=== PATIENT | female | born 1990 | race Caucasian/White ===

== ENCOUNTER 2018-10-04 00:30 | Emergency (ER) | payer MEDICAID, OTHER ==
[2018-10-04] MEDS ORDERED: EPINEPHrine 1 MG/ML SDV ONE (00:37)
[2018-10-04] MEDS ORDERED: diphenhydrAMINE 50 MG/ML SDV ONE (00:37)
[2018-10-04] MEDS ORDERED: methylPREDNISolone Sodium Succinate 125 MG/2 ML SDV ONE (00:37)
--- NOTE | 2018-10-04 00:38 | EDM.PDOC ---
ED HPI GENERAL MEDICAL PROBLEM - General Chief Complaint: Allergic Reaction Stated Complaint: POSSIBLE ALLERGIC REACTION Time Seen by Provider: 10/04/18 00:36 - History of Present Illness INITIAL COMMENTS - FREE TEXT/NARRATIVE: HISTORY AND PHYSICAL: History of present illness: Patient is a 28-year-old white female presents with acute allergic reaction the diffuse erythematous rash and difficulty swallowing this occurred after she ate a chocolate covered banana at 1 hour prior to arrival Review of systems: As per history of present illness and below otherwise all systems reviewed and negative. Past medical history: As per history of present illness and as reviewed below otherwise noncontributory. Surgical history: As per history of present illness and as reviewed below otherwise noncontributory. Social history: No reported history of drug or alcohol abuse. Family history: As per history of present illness and as reviewed below otherwise noncontributory. Physical exam: HEENT: Atraumatic, normocephalic, pupils reactive, negative for conjunctival pallor or scleral icterus, mucous membranes moist, throat clear, neck supple, nontender, trachea midline. Lungs: Clear to auscultation, breath sounds equal bilaterally, chest nontender. Heart: S1S2, regular, negative for clicks, rubs, or JVD. Abdomen: Soft, nondistended, nontender. Negative for masses or hepatosplenomegaly. Negative for costovertebral tenderness. Pelvis: Stable nontender. Genitourinary: Deferred. Rectal: Deferred. Extremities: Atraumatic, negative for cords or calf pain. Neurovascular unremarkable. Neuro: Awake, alert, oriented. Cranial nerves II through XII unremarkable. Cerebellum unremarkable. Motor and sensory unremarkable throughout. Exam nonfocal. Skin: Patient has a diffuse coalesced erythematous rash Diagnostics: None Therapeutics: Epinephrine 0.3 IM Benadryl 50 IV Solu-Medrol and 125 IV Impression: #1 acute allergic reaction Definitive disposition and diagnosis as appropriate pending reevaluation and review of above. - Related Data Allergies Allergy/AdvReac Type Severity Reaction Status Date / Time Penicillins Allergy Rash Verified 10/04/18 00:36 Home Meds: Home Meds ClonazePAM [KlonoPIN] 1 mg PO BID 10/04/18 [History] buPROPion HCl [Wellbutrin Xl] 300 mg PO DAILY 10/04/18 [History] ED ROS ALLERGIC REACTION - Review of Systems Review Of Systems: ROS reveals no pertinent complaints other than HPI. ED EXAM GENERAL NO PERIP PULSE - Physical Exam Exam: See Below (See dictation) Course - Vital Signs Text/Narrative:: Patient with marked resolution has no difficulty swallowing breathing speech or other concern is eager for discharge request discharge. Last Recorded V/S: Last Vital Signs Temp 37.6 C 10/04/18 00:37 Pulse 104 H 10/04/18 00:37 Resp 18 10/04/18 00:37 BP 128/82 10/04/18 00:37 Pulse Ox 96 10/04/18 00:37 - Orders/Labs/Meds Meds: Medications Discontinued Medications Generic Name Dose Route Start Last Admin Trade Name Freq PRN Reason Stop Dose Admin Diphenhydramine HCl Confirm 10/04/18 00:37 10/04/18 00:51 Benadryl Administered 10/04/18 00:38 Not Given Dose 50 mg .ROUTE .STK-MED ONE Diphenhydramine HCl 50 mg 10/04/18 00:45 10/04/18 00:48 Benadryl IVPUSH 10/04/18 00:46 50 mg ONETIME ONE Administration Epinephrine HCl Confirm 10/04/18 00:37 10/04/18 00:51 Adrenalin Administered 10/04/18 00:38 Not Given Dose 1 mg .ROUTE .STK-MED ONE Epinephrine HCl 0.3 mg 10/04/18 00:45 10/04/18 00:47 Adrenalin IM 10/04/18 00:46 0.3 mg ONETIME ONE Administration Methylprednisolone Sodium Succinate Confirm 10/04/18 00:37 10/04/18 00:51 Solu-Medrol Administered 10/04/18 00:38 Not Given Dose 125 mg .ROUTE .STK-MED ONE Methylprednisolone Sodium Succinate 125 mg 10/04/18 00:45 10/04/18 00:48 Solu-Medrol IVPUSH 10/04/18 00:46 125 mg ONETIME ONE Administration Departure - Departure Time of Disposition: 01:07 Disposition: Home, Self-Care 01 Condition: Good Clinical Impression: Allergic reaction - Discharge Information Additional Instructions: The following information is given to patients seen in the emergency department who are being discharged to home. This information is to outline your options for follow-up care. We provide all patients seen in our emergency department with a follow-up referral. The need for follow-up, as well as the timing and circumstances, are variable depending upon the specifics of your emergency department visit. If you don't have a primary care physician on staff, we will provide you with a referral. We always advise you to contact your personal physician following an emergency department visit to inform them of the circumstance of the visit and for follow-up with them and/or the need for any referrals to a consulting specialist. The emergency department will also refer you to a specialist when appropriate. This referral assures that you have the opportunity for followup care with a specialist. All of these measure are taken in an effort to provide you with optimal care, which includes your followup. Under all circumstances we always encourage you to contact your private physician who remains a resource for coordinating your care. When calling for followup care, please make the office aware that this follow-up is from your recent emergency room visit. If for any reason you are refused follow-up, please contact the [facility] emergency department at and asked to speak to the emergency department charge nurse. Audrey Ortega as directed follow-up private medical doctor for a possible allergens as discussed and return as needed as discussed
[2018-10-04] MEDS ORDERED: EPINEPHrine 1 MG/ML SDV IM ONE (00:45)
[2018-10-04] MEDS ORDERED: methylPREDNISolone Sodium Succinate 125 MG/2 ML SDV IVPUSH ONE (00:45)
[2018-10-04] MEDS ORDERED: diphenhydrAMINE 50 MG/ML SDV IVPUSH ONE (00:45)
== END 2018-10-04 02:13 | disposition home or self-care (01) ==
LOC: MW.ED 00:30
DX: T78.1XXA Other adverse food reactions, not elsewhere classified, initial encounter (principal); Z88.0 Allergy status to penicillin
CPT/HCPCS: 96372; 96374; 96375; 99283; J0171; J1200; J2930; 99282

== ENCOUNTER 2019-06-30 05:40 | Emergency (ER) | payer MEDICAID ==
--- NOTE | 2019-06-30 05:47 | EDM.PDOC ---
ED HPI GENERAL MEDICAL PROBLEM - General Stated Complaint: COUGHING Time Seen by Provider: 06/30/19 06:10 - History of Present Illness INITIAL COMMENTS - FREE TEXT/NARRATIVE: HISTORY AND PHYSICAL: History of present illness: The patient is a 29-year-old female who presents to the ED with cough for the last 2 days who did not get her influenza shot. The patient has no pulmonary history and does not smoke and has a history of lumbar back pain and she says the coughing is aggravating her pain. The patient did have an MRI recently which I reviewed which did not reveal any significant disease. Patient denies as she has had a tubal ligation. She's had no nausea vomiting or diarrhea and she does state that she has a sore throat but only nasal congestion. She has tried some [id number] meds and is here for evaluation. She did not have a documented fever at home and has had some feverish feeling in the last 24 hours but she did not take her temperature. Review of systems: As per history of present illness and below otherwise all systems reviewed and negative. Past medical history: As per history of present illness and as reviewed below otherwise noncontributory. Surgical history: As per history of present illness and as reviewed below otherwise noncontributory. Social history: No reported history of drug or alcohol abuse. Family history: As per history of present illness and as reviewed below otherwise noncontributory. Physical exam: General: Well-developed well-nourished female who is nontoxic and a dry cough is appreciated on my evaluation. Vital signs are noted by me HEENT: Atraumatic, normocephalic, pupils reactive, negative for conjunctival pallor or scleral icterus, mucous membranes moist, throat clear exudates and there is only minimal oropharyngeal erythema and no cervical adenopathy, neck supple, nontender, trachea midline. Lungs: Clear to auscultation, breath sounds equal bilaterally, chest nontender. There is no wheezing stridor or work of breathing Heart: S1S2, regular rhythm and rate and no overt murmurs Abdomen: Soft, nondistended, nontender. Negative for masses or hepatosplenomegaly. Negative for costovertebral tenderness. Pelvis: Deferred Genitourinary: Deferred. Rectal: Deferred. Extremities: Atraumatic, negative for cords or calf pain. Neurovascular unremarkable. Neuro: Awake, alert, oriented. Cranial nerves II through XII unremarkable. Cerebellum unremarkable. Motor and sensory unremarkable throughout. Exam nonfocal. Diagnostics: Influenza rapid strep Therapeutics: DuoNeb, spacer and spacer teaching Impression: Influenza B with bronchospastic cough, pharyngitis Definitive disposition and diagnosis as appropriate pending reevaluation and review of above. chest and back Pain Score (Numeric/FACES): 6 - Related Data Allergies Allergy/AdvReac Type Severity Reaction Status Date / Time Penicillins Allergy Rash Verified 10/04/18 00:36 Home Meds: Home Meds ClonazePAM [KlonoPIN] 1 mg PO BID 10/04/18 [History] buPROPion HCl [Wellbutrin Xl] 300 mg PO DAILY 10/04/18 [History] Past Medical History HEENT History: Reports: None Cardiovascular History: Reports: None Respiratory History: Reports: None Gastrointestinal History: Reports: None Genitourinary History: Reports: None MEDICAL RECORDS CLERK History: Reports: None Musculoskeletal History: Reports: None Neurological History: Reports: None Endocrine/Metabolic History: Reports: None Hematologic History: Reports: None Immunologic History: Reports: None Oncologic (Cancer) History: Reports: None Dermatologic History: Reports: None - Infectious Disease History Infectious Disease History: Reports: None - Past Surgical History Head Surgeries/Procedures: Reports: None Social & Family History - Family History Family Medical History: Noncontributory - Caffeine Use Caffeine Use: Reports: Coffee ED ROS GENERAL - Review of Systems Review Of Systems: Comprehensive ROS is negative, except as noted in HPI. ED EXAM, GENERAL - Physical Exam Exam: See Below (see dictation) Course - Vital Signs Last Recorded V/S: Last Vital Signs Temp 37.3 C 06/30/19 05:47 Pulse 93 06/30/19 05:47 Resp 18 06/30/19 05:47 BP 129/68 06/30/19 05:47 Pulse Ox 96 06/30/19 05:47 - Orders/Labs/Meds Orders: Active Orders 24 hr Category Date Time Status Communication Order [RC] STAT Care 06/30/19 06:19 Active RT Aerosol Therapy [RC] ASDIRECTED Care 06/30/19 06:19 Active STREP SCRN A RAPID W CULT CONF [RM] Stat Lab 06/30/19 06:30 Received Meds: Medications Discontinued Medications Generic Name Dose Route Start Last Admin Trade Name Freq PRN Reason Stop Dose Admin Albuterol/Ipratropium 3 ml 06/30/19 06:19 06/30/19 06:29 Duoneb 3.0-0.5 Mg/3 Ml NEB 06/30/19 06:20 3 ml ONETIME ONE Administration Departure - Departure Time of Disposition: 06:35 Disposition: Home, Self-Care 01 Condition: Good Clinical Impression: Influenza B, Bronchospasm Pharyngitis Qualifiers: Pharyngitis/tonsillitis etiology: unspecified etiology Qualified Code(s): J02.9 - Acute pharyngitis, unspecified - Discharge Information Referrals: Clari Kidd PAY CLERK [Primary Care Provider] - Additional Instructions: The following information is given to patients seen in the emergency department who are being discharged to home. This information is to outline your options for follow-up care. We provide all patients seen in our emergency department with a follow-up referral. The need for follow-up, as well as the timing and circumstances, are variable depending upon the specifics of your emergency department visit. If you don't have a primary care physician on staff, we will provide you with a referral. We always advise you to contact your personal physician following an emergency department visit to inform them of the circumstance of the visit and for follow-up with them and/or the need for any referrals to a consulting specialist. The emergency department will also refer you to a specialist when appropriate. This referral assures that you have the opportunity for followup care with a specialist. All of these measure are taken in an effort to provide you with optimal care, which includes your followup. Under all circumstances we always encourage you to contact your private physician who remains a resource for coordinating your care. When calling for followup care, please make the office aware that this follow-up is from your recent emergency room visit. If for any reason you are refused follow-up, please contact the [facility] emergency department at and ask to speak to the emergency department charge nurse. [address] [place] [id number] Push hydration and use all medication as prescribed, the Ventolin inhaler with the spacer you Been given, the Tamiflu and the Phenergan with codeine cough medicine, taking the cough medicine only when you're home. Please connect with your provider at [facility] for reevaluation and further care and return to ER as needed and as discussed Sepsis Event Note - Focused Exam Vital Signs: Vital Signs Temp Pulse Resp BP Pulse Ox 06/30/19 05:47 37.3 C 93 18 129/68 96 Date Exam was Performed: 06/30/19 Time Exam was Performed: 06:34 - My Orders Last 24 Hours: My Active Orders 06/30/19 06:19 Communication Order [RC] STAT RT Aerosol Therapy [RC] ASDIRECTED 06/30/19 06:30 STREP SCRN A RAPID W CULT CONF [RM] Stat - Assessment/Plan Last 24 Hours: My Active Orders 06/30/19 06:19 Communication Order [RC] STAT RT Aerosol Therapy [RC] ASDIRECTED 06/30/19 06:30 STREP SCRN A RAPID W CULT CONF [RM] Stat
[2019-06-30] MEDS ORDERED: Albuterol/Ipratropium 3.0-0.5 MG/3 ML Neb Soln NEB ONE (06:19)
== END 2019-06-30 06:56 | disposition home or self-care (01) ==
LOC: MW.ED 05:40
DX: J11.1 Influenza due to unidentified influenza virus with other respiratory manifestations (principal); J98.01 Acute bronchospasm; Z88.0 Allergy status to penicillin; Z79.899 Other long term (current) drug therapy
CPT/HCPCS: 87081; 87804; 87880-QW; 99283-25; J7620-GY

== ENCOUNTER 2020-07-05 06:15 | Emergency (ER) | payer MEDICAID ==
[2020-07-05] MEDS ORDERED: fentaNYL 50 MCG/ML SDV IVPUSH ONE (06:47)
[2020-07-05] MEDS ORDERED: Acetaminophen 500 MG Tab PO ONE (06:47)
--- NOTE | 2020-07-05 06:50 | EDM.PDOC ---
<Ralf Payan - Last Filed: 07/05/20 06:48> ED HPI GENERAL MEDICAL PROBLEM - General Chief Complaint: Abdominal Pain Stated Complaint: STOMACH PAIN Time Seen by Provider: 07/05/20 06:29 Source of Information: Reports: Patient, Old Records History Limitations: Reports: No Limitations - History of Present Illness INITIAL COMMENTS - FREE TEXT/NARRATIVE: Is a very pleasant 30-year-old female with a past medical history of anxiety presenting with abdominal pain. She reports the onset of right upper quadrant abdominal pain around 9 PM this evening after she smoked marijuana and ate a very heavy meal consisting of sloppy [employer] doughnuts and chips with cheese. After this meal she started having right upper quadrant abdominal pain that she describes as "cramping like a period". Does not radiate, rated as 8 out of 10 and constant. Denies any history of prior pain like this in the past. Nothing makes it better or worse. She denies fever, nausea, vomiting, hematemesis, diarrhea, bloody stools, dysuria, urinary frequency, or hematuria. No self treatment prior to arrival, no other complaints. ROS: A 10-point review of systems was negative, except as noted in the HPI (or in the ROS section of this note). Past medical history: Reviewed, no additional pertinent history. Surgical history: Reviewed in system, no additional pertinent history. Social history: Reviewed in system, no additional pertinent history. Family history: Reviewed in system, no additional pertinent history. PHYSICAL EXAM Vital signs reviewed. Nursing notes reviewed. Constitutional: Awake, alert, non-distressed. Head: Normocephalic, atraumatic. Eyes: EOMI, conjunctiva normal, no discharge, no scleral icterus. Ears, Nose, Throat: External ears and nose normal, moist oral mucosa. Cardiovascular: 2+ radial pulse, capillary refill less than 2 seconds. Pulmonary: normal work of breathing, no accessory muscle use. Abdomen/GI: Soft, mild tenderness in the right upper quadrant, nondistended, no guarding or rigidity, no masses. No CVA tenderness. Musculoskeletal: No deformities. Integumentary: Appropriate color for ethnicity, warm, dry, no pallor or jaundice, no rash. Neurologic: Alert, answering questions appropriately, normal speech, no facial droop, moving all extremities well. Psychiatric: Appropriate mood and affect, normal thought process. This patient was seen and evaluated during the 2019 SARS-CoV-2 novel coronavirus pandemic period. Community viral transmission is ongoing at time of this encounter and the emergency department is operating under pandemic response procedures. right upper quadrant Pain Score (Numeric/FACES): 8 - Related Data Allergies Allergy/AdvReac Type Severity Reaction Status Date / Time Penicillins Allergy Rash Verified 07/05/20 06:24 Home Meds: Home Meds . [No Known Home Meds] 07/05/20 [History] Past Medical History - Past Health History Medical/Surgical History: Denies Medical/Surgical History HEENT History: Reports: None Cardiovascular History: Reports: None Respiratory History: Reports: None Gastrointestinal History: Reports: None Genitourinary History: Reports: None FEATURES EDITOR History: Reports: None Musculoskeletal History: Reports: None Neurological History: Reports: None Psychiatric History: Reports: Addiction, Anxiety, Depression Endocrine/Metabolic History: Reports: None Hematologic History: Reports: None Immunologic History: Reports: None Oncologic (Cancer) History: Reports: None Dermatologic History: Reports: None - Infectious Disease History Infectious Disease History: Reports: Chicken Pox - Past Surgical History Head Surgeries/Procedures: Reports: None HEENT Surgical History: Reports: Adenoidectomy, Tonsillectomy Female Surgical History: Reports: Tubal Ligation Social & Family History - Family History Family Medical History: No Pertinent Family History - Caffeine Use Caffeine Use: Reports: Coffee - Recreational Drug Use Recreational Drug Use: Yes Drug Use in Last 12 Months: Yes Recreational Drug Type: Reports: Marijuana/Hashish, Methamphetamine Recreational Drug Use Frequency: Daily ED ROS GENERAL - Review of Systems Review Of Systems: See Below ED EXAM, GI/ABD - Physical Exam Exam: See Below Course - Vital Signs Text/Narrative:: 30-year-old female presenting with several hours of right upper quadrant abdominal pain after a large meal. Patient hemodynamically stable, afebrile, well-appearing, looks nontoxic. Differential diagnosis includes but is not limited to: Cholecystitis, biliary colic, choledocholithiasis, acute hepatitis, pancreatitis, gastritis, and many others. Ordered IV access, pain medications, labs, right upper quadrant ultrasound. These are pending at time of shift change. Signed out in person to my colleague Dr. Brower, please refer to his note for disposition. Departure - Departure Disposition: Home, Self-Care 01 Clinical Impression: Gastritis - Discharge Information Instructions: Gastritis, Adult, [id number] Referrals: Clari Kidd, COMBER OPERATOR [Primary Care Provider] - Forms: ED Department Discharge Additional Instructions: Both types of stomach acid reducers are [id number]. You can ask the pharmacist which might be best for you and most affordable. Omeprazole pantoprazole etc. are the recommendations I would make. [facility] - Primary [facility] [address] [place] [id number] [place] [address] The following information is given to patients seen in the emergency department who are being discharged to home. This information is to outline your options for follow-up care. We provide all patients seen in our emergency department with a follow-up referral. The need for follow-up, as well as the timing and circumstances, are variable depending upon the specifics of your emergency department visit. If you don't have a primary care physician on staff, we will provide you with a referral. We always advise you to contact your personal physician following an emergency department visit to inform them of the circumstance of the visit and for follow-up with them and/or the need for any referrals to a consulting specialist. The emergency department will also refer you to a specialist when appropriate. This referral assures that you have the opportunity for follow-up care with a specialist. All of these measure are taken in an effort to provide you with optimal care, which includes your follow-up. Under all circumstances we always encourage you to contact your private physician who remains a resource for coordinating your care. When calling for follow-up care, please make the office aware that this follow-up is from your recent emergency room visit. If for any reason you are refused follow-up, please contact the [facility] Emergency Department at and asked to speak to the emergency department charge nurse. Sepsis Event Note (ED) - Evaluation Sepsis Screening Result: No Definite Risk <John Brower - Last Filed: 07/05/20 08:14> Course - Vital Signs Text/Narrative:: 7:53 AM. Patient feels better. She has no tenderness in her abdomen. Reviewing the history and discussing with the patient what is happened I believe she has a hyperacidity syndrome secondary to mountain types of foods she ate yesterday. I think she should be on a PPI for at least 2 weeks. We will start with an IV dose here. Ultrasound is normal labs are normal. Patient is a completely benign physical exam. Questions answered and discharged in satisfactory condition. Last Recorded V/S: Last Vital Signs Temp 36.3 C 07/05/20 06:59 Pulse 79 07/05/20 06:59 Resp 16 07/05/20 06:59 BP 146/92 H 07/05/20 06:59 Pulse Ox 100 07/05/20 06:59 - Orders/Labs/Meds Orders: Active Orders 24 hr Category Date Time Status Nothing Per Oral Diet [DIET] Diet 07/05/20 Dinner Active Labs: Laboratory Tests 07/05/20 07/05/20 07/05/20 Range/Units 06:42 06:43 06:43 WBC (4.0-11.0) K/uL RBC (4.30-5.90) M/uL Hgb (12.0-16.0) g/dL Hct (36.0-46.0) % MCV (80.0-98.0) fL MCH (27.0-32.0) pg MCHC (31.0-37.0) g/dL RDW Std Deviation (28.0-62.0) fl RDW Coeff of Eliazar (11.0-15.0) % Plt Count (150-400) K/uL MPV (7.40-12.00) fL Neut % (Auto) (48.0-80.0) % Lymph % (Auto) (16.0-40.0) % Starr % (Auto) (0.0-15.0) % Eos % (Auto) (0.0-7.0) % Baso % (Auto) (0.0-1.5) % Neut # (Auto) (1.4-5.7) K/uL Lymph # (Auto) (0.6-2.4) K/uL Starr # (Auto) (0.0-0.8) K/uL Eos # (Auto) (0.0-0.7) K/uL Baso # (Auto) (0.0-0.1) K/uL Nucleated RBC % /100WBC Nucleated RBCs # K/uL Sodium 140 (136-145) mmol/L Potassium 4.0 (3.5-5.1) mmol/L Chloride 103 (98-107) mmol/L Carbon Dioxide 27.7 (21.0-32.0) mmol/L BUN 11 (7.0-18.0) mg/dL Creatinine 0.9 (0.6-1.0) mg/dL Est Cr Clr Drug Dosing 88.88 mL/min Estimated GFR (MDRD) > 60.0 ml/min Glucose 98 (74-106) mg/dL Calcium 8.7 (8.5-10.1) mg/dL Total Bilirubin 0.3 (0.2-1.0) mg/dL AST 22 (15-37) IU/L ALT 37 (14-63) IU/L Alkaline Phosphatase 84 (46-116) U/L Total Protein 6.9 (6.4-8.2) g/dL Albumin 3.6 (3.4-5.0) g/dL Globulin 3.3 (2.6-4.0) g/dL Albumin/Globulin Ratio 1.1 (0.9-1.6) Lipase 77 (73-393) U/L HCG, Qual NEGATIVE (NEG) Urine Color YELLOW Urine Appearance SLT CLOUDY Urine pH 6.0 (5.0-8.0) Ur Specific Marty 1.025 (1.001-1.035) Urine Protein NEGATIVE (NEGATIVE) mg/dL Urine Glucose (UA) NEGATIVE (NEGATIVE) mg/dL Urine Ketones NEGATIVE (NEGATIVE) mg/dL Urine Occult Blood LARGE H (NEGATIVE) Urine Nitrite NEGATIVE (NEGATIVE) Urine Bilirubin NEGATIVE (NEGATIVE) Urine Urobilinogen 0.2 (<2.0) EU/dL Ur Leukocyte Esterase SMALL H (NEGATIVE) Urine RBC 2-5 (0-2/HPF) Urine WBC 3-6 (0-5/HPF) Ur Epithelial Cells MANY (NONE-FEW) Urine Bacteria 1+ H (NEGATIVE) 07/05/20 Range/Units 06:43 WBC 6.53 (4.0-11.0) K/uL RBC 4.11 L (4.30-5.90) M/uL Hgb 12.9 (12.0-16.0) g/dL Hct 38.4 (36.0-46.0) % MCV 93.4 (80.0-98.0) fL MCH 31.4 (27.0-32.0) pg MCHC 33.6 (31.0-37.0) g/dL RDW Std Deviation 43.6 (28.0-62.0) fl RDW Coeff of Eliazar 13 (11.0-15.0) % Plt Count 322 (150-400) K/uL MPV 10.10 (7.40-12.00) fL Neut % (Auto) 57.4 (48.0-80.0) % Lymph % (Auto) 28.6 (16.0-40.0) % Starr % (Auto) 9.2 (0.0-15.0) % Eos % (Auto) 4.3 (0.0-7.0) % Baso % (Auto) 0.5 (0.0-1.5) % Neut # (Auto) 3.8 (1.4-5.7) K/uL Lymph # (Auto) 1.9 (0.6-2.4) K/uL Starr # (Auto) 0.6 (0.0-0.8) K/uL Eos # (Auto) 0.3 (0.0-0.7) K/uL Baso # (Auto) 0.0 (0.0-0.1) K/uL Nucleated RBC % 0.0 /100WBC Nucleated RBCs # 0 K/uL Sodium (136-145) mmol/L Potassium (3.5-5.1) mmol/L Chloride (98-107) mmol/L Carbon Dioxide (21.0-32.0) mmol/L BUN (7.0-18.0) mg/dL Creatinine (0.6-1.0) mg/dL Est Cr Clr Drug Dosing mL/min Estimated GFR (MDRD) ml/min Glucose (74-106) mg/dL Calcium (8.5-10.1) mg/dL Total Bilirubin (0.2-1.0) mg/dL AST (15-37) IU/L ALT (14-63) IU/L Alkaline Phosphatase (46-116) U/L Total Protein (6.4-8.2) g/dL Albumin (3.4-5.0) g/dL Globulin (2.6-4.0) g/dL Albumin/Globulin Ratio (0.9-1.6) Lipase (73-393) U/L HCG, Qual (NEG) Urine Color Urine Appearance Urine pH (5.0-8.0) Ur Specific Marty (1.001-1.035) Urine Protein (NEGATIVE) mg/dL Urine Glucose (UA) (NEGATIVE) mg/dL Urine Ketones (NEGATIVE) mg/dL Urine Occult Blood (NEGATIVE) Urine Nitrite (NEGATIVE) Urine Bilirubin (NEGATIVE) Urine Urobilinogen (<2.0) EU/dL Ur Leukocyte Esterase (NEGATIVE) Urine RBC (0-2/HPF) Urine WBC (0-5/HPF) Ur Epithelial Cells (NONE-FEW) Urine Bacteria (NEGATIVE) Meds: Medications Discontinued Medications Generic Name Dose Route Start Last Admin Trade Name Zaida PRN Reason Stop Dose Admin Acetaminophen 1,000 mg 07/05/20 06:47 07/05/20 06:52 Tylenol Extra Strength PO 07/05/20 06:48 1,000 mg ONETIME ONE Administration Fentanyl 50 mcg 07/05/20 06:47 07/05/20 06:52 Fentanyl IVPUSH 07/05/20 06:48 50 mcg ONETIME ONE Administration Pantoprazole Sodium 40 mg/ 10 mls @ 300 mls/hr 07/05/20 07:52 07/05/20 08:01 Sodium Chloride IV 07/05/20 07:53 300 mls/hr NOW ONE Administration Departure - Departure Time of Disposition: 08:14 Condition: Good Sepsis Event Note (ED) - Focused Exam Vital Signs: Vital Signs Temp Pulse Resp BP Pulse Ox 07/05/20 06:59 36.3 C 79 16 146/92 H 100 07/05/20 06:26 36.3 C 85 18 143/86 H 99
[2020-07-05 07:09] LABS: BLOOD UREA NITROGEN,BUN 11 mg/dL (7.0-18.0); CARBON DIOXIDE,CO2 27.7 mmol/L (21.0-32.0); CHLORIDE,CL 103 mmol/L (98-107); GLUCOSE RANDOM 98 mg/dL (74-106); LIPASE 77 U/L (73-393); SODIUM,NA 140 mmol/L (136-145)
[2020-07-05] MEDS ORDERED: Pantoprazole 40 MG in Sodium Chloride 0.9% 10 ML IV ONE (07:52)
--- NOTE | 2020-07-05 08:10 | US ---
CLINICAL HISTORY: Pain FINDINGS: Liver measures 17.9 cm and is mildly enlarged. There is a normal appearance of the hepatic IVC and proximal abdominal aorta. There is no evidence of ascites. The gallbladder is of normal size and there is no evidence of intraluminal stones or sludge. The gallbladder wall measures 1 mm in thickness. The common bile duct is of normal size and measures 4 mm in diameter at the level of the margaux hepatis. Negative sonographic Licona sign. The pancreas appears normal. There is no evidence of a stone or hydronephrosis within the right kidney. The right kidney measures 11.3 cm in length. IMPRESSION: No findings for acute cholecystitis. Liver is mildly enlarged. Dictated by Bailey Patrick MD @ Jul 05 2020 8:07AM Signed by Dr. Bailey Patrick @ Jul 05 2020 8:10AM
== END 2020-07-05 08:25 | disposition home or self-care (01) ==
LOC: MW.ED 06:15
DX: K29.70 Gastritis, unspecified, without bleeding (principal); Z88.0 Allergy status to penicillin
CPT/HCPCS: 36415; 76705; 80053; 81001; 83690; 84703; 85025; 96374; 96375; 99284; A9270; C9113; J3010; 99283

== ENCOUNTER 2022-10-14 05:01 | Emergency (ER) | payer MEDICAID ==
[2022-10-14] MEDS ORDERED: diphenhydrAMINE 50 MG/ML SDV IM ONE (05:22)
[2022-10-14] MEDS ORDERED: Ketorolac 30 MG/ML SDV IM ONE (05:22)
[2022-10-14] MEDS ORDERED: Metoclopramide 10 MG/2 ML SDV IM ONE (05:23)
== END 2022-10-14 06:11 | disposition home or self-care (01) ==
LOC: MW.ED 05:01
DX: R51.9 Headache, unspecified (principal); Z88.0 Allergy status to penicillin
CPT/HCPCS: 70450; 96372; 99284; J1200; J1885; J2765

== ENCOUNTER 2023-11-11 18:14 | Emergency (ER) | payer MEDICAID ==
[2023-11-11] MEDS: Alum Hydro/Mag Hydro/Simeth XS 15 ML, Lidocaine 2% 5 ML PO ONE (19:01)
[2023-11-11] MEDS: Famotidine 20 MG Tab PO ONE (19:01)
[2023-11-11] MEDS: Acetaminophen 500 MG Tab PO ONE (19:02)
[2023-11-11 19:05] LABS: BASOPHILS ABSOLUTE AUTO 0.03 K/uL (0.00-0.20); BASOPHILS PERCENT AUTO 0.5 % (0.0-1.0); EOSINOPHILS ABSOLUTE AUTO 0.31 K/uL (0.00-0.45); EOSINOPHILS PERCENT AUTO 4.8 % (0.0-6.0); HEMATOCRIT 33.9 % (37.0-47.0); HEMOGLOBIN 12.1 g/dL (12.0-16.0); IMMATURE GRAN ABSOLUTE AUTO 0.11 K/uL (0.00-0.05); IMMATURE GRAN PERCENT AUTO 1.7 % (0.0-0.4); LYMPHOCYTES ABSOLUTE AUTO 1.81 K/uL (1.00-4.80); LYMPHOCYTES PERCENT AUTO 28.1 % (24.0-44.0); MEAN CORPUSCULAR HEMOGLOBIN 31.8 pg (28.0-32.0); MEAN CORPUSCULAR HGB CONC 35.7 g/dL (32.0-36.0); MEAN CORPUSCULAR VOLUME 89.2 fL (83.0-99.0); MEAN PLATELET VOLUME 10.4 fL (9.4-12.3); MONOCYTES PERCENT AUTO 7.8 % (0.0-8.0); NEUTROPHILS ABSOLUTE AUTO 3.68 K/uL (1.80-7.70); NEUTROPHILS PERCENT AUTO 57.1 % (41.0-71.0); PLATELET COUNT,PLT 279 K/uL (150-400); WHITE BLOOD CELL COUNT,WBC 6.44 K/uL (3.9-11.3)
[2023-11-11 19:26] LABS: ALBUMIN 3.3 g/dL (3.4-5.0); BILIRUBIN TOTAL 0.3 mg/dL (0.2-1.0); CALCIUM 8.9 mg/dL (8.5-10.1); CARBON DIOXIDE,CO2 27.2 mmol/L (21.0-32.0); CREATININE 0.9 mg/dL (0.6-1.0); EST CRCL DRUG DOSING (CG) 86.46 mL/min; PROTEIN TOTAL,TP 6.5 g/dL (6.4-8.2)
== END 2023-11-11 20:05 | disposition home or self-care (01) ==
LOC: MW.ED 18:14
DX: K21.9 Gastro-esophageal reflux disease without esophagitis (principal); Z88.0 Allergy status to penicillin; Z79.899 Other long term (current) drug therapy; Z75.8 Other problems related to medical facilities and other health care
CPT/HCPCS: 36415; 80053; 83690; 85025; 99284; A9270